=== PATIENT | female | born 1950 | race Caucasian/White ===

== ENCOUNTER 2022-07-29 08:59 | Emergency (ER) | payer OTHER ==
[~2022-07-29] VITALS: Ht 162.6 cm; Wt 54.5 kg
[~2022-07-29 08:59] MED LIST: ALPH300C OR; CHOL20009 OR; LISI-285 OR; MAGN400C3 OR; MISCTAB85 OR; MULTCHW OR; OMEGA 3 FATTY ACIDS; TRIA75TA55 OR
[2022-07-29] MEDS ORDERED: ACETAMINOPHEN 500 MG TAB PO ONE (09:45)
[2022-07-29 11:22] VITALS: BP 155/90
== END 2022-07-29 11:34 | disposition home or self-care (01) ==
LOC: ER 08:59 → EDBD 08:59 → ER 11:24
DX: S00.03XA Contusion of scalp, initial encounter (principal); M54.50 Low back pain, unspecified; I10 Essential (primary) hypertension; Z90.89 Acquired absence of other organs; Z79.899 Other long term (current) drug therapy; Z88.5 Allergy status to narcotic agent; W01.198A Fall on same level from slipping, tripping and stumbling with subsequent striking against other object, initial encounter; Y93.89 Activity, other specified; Y92.89 Other specified places as the place of occurrence of the external cause; Y99.8 Other external cause status
CPT/HCPCS: 70450; 72125

== ENCOUNTER 2022-08-08 07:31 | Emergency (ER) | payer OTHER ==
[~2022-08-08] VITALS: Ht 162.6 cm; Wt 54.5 kg
[2022-08-08] MEDS ORDERED: SODIUM CHLORIDE 0.9% 1,000 ML IV ONE (08:30)
[2022-08-08] MEDS ORDERED: KETOROLAC TROMETH 30 MG/ML 1ML VIAL IV ONE (08:30)
[2022-08-08] MEDS ORDERED: ONDANSETRON HCL 4 MG/2 ML VIAL IV ONE (08:30)
[2022-08-08 08:57] LABS: Basophils # (auto) 0.1 10 ^3/uL (0-0.2); Basophils % (auto) 0.6 % (0.0-2.0); Eosinophils # (auto) 0 10 ^3/uL (0-0.8); Eosinophils % (auto) 0.5 % (0.0-7.0); Hematocrit 43.3 % (36.0-46.0); Hemoglobin 15.1 g/dL (12.2-16.2); Lymphocytes # (auto) 1.3 10 ^3/uL (0.4-5.4); Lymphocytes % (auto) 13.6 % (10.0-50.0); Mean Corpuscular Hemoglobin 30.8 pg (28.0-32.0); Mean Corpuscular Hgb Conc. 34.9 g/dL (32.0-36.0); Mean Corpuscular Volume 88.2 fL (80.0-100.0); Monocytes # (auto) 0.6 10 ^3/uL (0-1.3); Monocytes % (auto) 6.5 % (0.0-12.0); Neutrophils # (auto) 7.6 10 ^3/uL (1.6-8.6); Neutrophils % (auto) 78.8 % (37.0-80.0); Red Blood Cells 4.91 10^6/uL (4.0-5.20); Red Cell Distribution Width 13.6 % (11.8-14.3); White Blood Cell 9.6 10^3/uL (4.4-10.8)
[2022-08-08 09:08] LABS: Albumin 3.9 g/dL (3.4-5.0); Calcium 9.7 mg/dL (8.5-10.1); Magnesium 2.2 mg/dL (1.6-2.6); Potassium 3.5 mmol/L (3.5-5.1)
[2022-08-08 09:10] LABS: BUN/Creatinine Ratio 36.7; Bilirubin, Total 1.2 mg/dL (0.2-1.0); Total Protein 6.7 g/dL (6.4-8.2)
[2022-08-08] MEDS ORDERED: CYCL-838 PO (11:34)
[2022-08-08] MEDS ORDERED: TRAM50TA2 PO (11:34)
[2022-08-08] MEDS ORDERED: DICL50TA2 PO (11:34)
[2022-08-08] MEDS ORDERED: BUPIVACAINE 0.75% INJ 10ML MPV SDV IJ ONE (14:15)
[2022-08-08] MEDS ORDERED: DexAMETHasone SOD PHOS 4 MG/1ML SDV INJ IV ONE (14:15)
[2022-08-08 14:50] VITALS: BP 150/77
[2022-08-09 08:55] LABS: Hepatitis B Surface Antibody Positive (Negative)
== END 2022-08-08 17:13 | disposition home or self-care (01) ==
LOC: EDBD 07:31 → ER 07:31
DX: M54.16 Radiculopathy, lumbar region (principal); M79.10 Myalgia, unspecified site; I10 Essential (primary) hypertension; Z90.89 Acquired absence of other organs; Z79.899 Other long term (current) drug therapy; Z88.5 Allergy status to narcotic agent
CPT/HCPCS: 36415; 72131; 80053; 83735; 85025; 86703; 86706; 86803; 87340; 96361; 96374; 96375; 99285; J1100; J1885; J2405; J3490

== ENCOUNTER 2022-09-21 16:47 | Inpatient (IN) | payer OTHER ==
[~2022-09-21] VITALS: Ht 162.6 cm; Wt 55.0 kg
[~2022-09-21 16:47] MED LIST changes: +CYCL-838 PO; +DICL50TA2 PO; +TRAM50TA2 PO
[2022-09-21 17:54] LABS: Basophils # (auto) 0.1 10 ^3/uL (0-0.2); Basophils % (auto) 0.7 % (0.0-2.0); Eosinophils # (auto) 0.1 10 ^3/uL (0-0.8); Eosinophils % (auto) 1.3 % (0.0-7.0); Hematocrit 38.6 % (36.0-46.0); Hemoglobin 13.6 g/dL (12.2-16.2); Lymphocytes # (auto) 1.7 10 ^3/uL (0.4-5.4); Lymphocytes % (auto) 21.3 % (10.0-50.0); Mean Corpuscular Hemoglobin 31.5 pg (28.0-32.0); Mean Corpuscular Hgb Conc. 35.3 g/dL (32.0-36.0); Mean Corpuscular Volume 89.3 fL (80.0-100.0); Monocytes # (auto) 0.6 10 ^3/uL (0-1.3); Monocytes % (auto) 7.7 % (0.0-12.0); Neutrophils # (auto) 5.6 10 ^3/uL (1.6-8.6); Nucleated Red Blood Cells % 0.1 %; Red Blood Cells 4.33 10^6/uL (4.0-5.20); Red Cell Distribution Width 13.9 % (11.8-14.3); White Blood Cell 8.1 10^3/uL (4.4-10.8)
[2022-09-21 18:16] LABS: Calcium 10.2 mg/dL (8.5-10.1); Potassium 3.6 mmol/L (3.5-5.1)
[2022-09-21 18:19] LABS: BUN/Creatinine Ratio 25.5; Bilirubin, Total 0.8 mg/dL (0.2-1.0); Total Protein 7.2 g/dL (6.4-8.2)
[2022-09-21 18:54] LABS: INR 0.94 (0.9-1.15); Partial Thromboplastin Time 28.8 sec (24.6-33.4)
[2022-09-21] MEDS ORDERED: IOHEXOL 350 MG/ML 100ML IJ ONE (23:11)
[2022-09-22] MEDS ORDERED: ONDANSETRON HCL 4 MG/2 ML VIAL IV PRN (00:30)
[2022-09-22] MEDS ORDERED: hydrALAZINE HCL 20 MG/ML VL IV PRN (00:30)
[2022-09-22] MEDS ORDERED: IBUPROFEN 600 MG TAB PO PRN (00:30)
[2022-09-22] MEDS ORDERED: DOCUSATE SOD 100 MG CAP PO PRN (00:30)
[2022-09-22] MEDS ORDERED: MORPHINE SULFATE INJ 2 MG/ml SYRG IV PRN (02:00)
[2022-09-22] MEDS ORDERED: cefTRIAXone 1GM/50ML D5W 50 ML IV ONE (02:00)
[2022-09-22] MEDS ORDERED: NITROGLYCERIN 0.4 MG SL TAB SL PRN (02:00)
[2022-09-22] MEDS: SODIUM CHLOR 0.9% PF (SALINE LOCK) 10ML VIAL/SYR IV SCH ×3 (08:24→22:00)
[2022-09-22] MEDS ORDERED: FAMOTIDINE (10MG/ML) 2ML VL IV SCH (10:00)
[2022-09-22] MEDS ORDERED: ZINC SULFATE 220mg CAP or TAB PO SCH (10:00)
[2022-09-22] MEDS ORDERED: ENOXAPARIN SOD 40 MG/0.4 ML SYRINGE SC SCH (10:00)
[2022-09-22] MEDS ORDERED: MULTIPLE VITAMIN TAB PO SCH (10:00)
[2022-09-22] MEDS: ASCORBIC ACID 500 MG TAB PO SCH ×2 (11:59→22:00)
[2022-09-22] MEDS ORDERED: FUROSEMIDE 20 MG/2 ML VIAL IV ONE (13:45)
[2022-09-22] MEDS ORDERED: VANCOMYCIN PER PHARMACY 0 MG IV SCH (13:45)
[2022-09-22] MEDS ORDERED: VANCOMYCIN 1GM/250ML 250 ML IV ONE (13:45)
[2022-09-22] MEDS ORDERED: NEOMYCIN-BACITRACIN-POLYM 15GM TOP OINT TOP ONE (13:46)
[2022-09-22] MEDS: PIPERACILLIN-TAZOB 3.375GM 100 ML IV SCH (18:46)
[2022-09-22] MEDS ORDERED: cefTRIAXone 1GM/50ML D5W 50 ML IV SCH (22:00)
[2022-09-23] MEDS ORDERED: VANCOMYCIN 1GM/250ML 250 ML IV SCH (04:00)
[2022-09-23] MEDS: SODIUM CHLOR 0.9% PF (SALINE LOCK) 10ML VIAL/SYR IV SCH (06:21)
[2022-09-23] MEDS: PIPERACILLIN-TAZOB 3.375GM 100 ML IV SCH ×2 (06:33)
[2022-09-23 07:17] LABS: Basophils # (auto) 0.1 10 ^3/uL (0-0.2); Eosinophils # (auto) 0.1 10 ^3/uL (0-0.8); Eosinophils % (auto) 1.7 % (0.0-7.0); Hemoglobin 12.4 g/dL (12.2-16.2); Lymphocytes # (auto) 1.3 10 ^3/uL (0.4-5.4); Lymphocytes % (auto) 22.8 % (10.0-50.0); Mean Corpuscular Hemoglobin 31.1 pg (28.0-32.0); Mean Corpuscular Hgb Conc. 34.5 g/dL (32.0-36.0); Mean Corpuscular Volume 90.1 fL (80.0-100.0); Monocytes # (auto) 0.4 10 ^3/uL (0-1.3); Monocytes % (auto) 7.8 % (0.0-12.0); Neutrophils # (auto) 3.7 10 ^3/uL (1.6-8.6); Neutrophils % (auto) 66.7 % (37.0-80.0); Nucleated Red Blood Cells % 0.1 %; Red Blood Cells 3.99 10^6/uL (4.0-5.20); Red Cell Distribution Width 13.8 % (11.8-14.3); White Blood Cell 5.6 10^3/uL (4.4-10.8)
[2022-09-23 07:33] LABS: Calcium 9.1 mg/dL (8.5-10.1); Potassium 3.1 mmol/L (3.5-5.1)
[2022-09-23 08:00] VITALS: BP 156/93
[2022-09-23] MEDS ORDERED: POTASSIUM CHL 20 Meq TABLET PO ONE (13:30)
[2022-09-23] MEDS ORDERED: LEVO-28 PO (14:58)
== END 2022-09-23 08:08 | disposition left against medical advice (07) | DRG 603 ==
LOC: ER 16:47 → OVERFLOW 09-22 02:00
PROVIDERS: ADMIT Nurse Practitioner Family; ATTEND Nurse Practitioner Family
DX: L03.116 Cellulitis of left lower limb (principal); L97.913 Non-pressure chronic ulcer of unspecified part of right lower leg with necrosis of muscle; L97.923 Non-pressure chronic ulcer of unspecified part of left lower leg with necrosis of muscle; S81.802A Unspecified open wound, left lower leg, initial encounter; M79.18 Myalgia, other site; X58.XXXA Exposure to other specified factors, initial encounter; Z53.29 Procedure and treatment not carried out because of patient's decision for other reasons; I10 Essential (primary) hypertension; R79.89 Other specified abnormal findings of blood chemistry; Z88.1 Allergy status to other antibiotic agents; Z88.5 Allergy status to narcotic agent; Y93.89 Activity, other specified; Y92.89 Other specified places as the place of occurrence of the external cause; Y99.8 Other external cause status
CPT/HCPCS: 36415; 71045; 71275; 73590; 80048; 80053; 82962; 84484; 85025; 85379; 85610; 85652; 85730; 87426; 93925; 93970; 96365; 96372; 96375; G0378; J0696; J2543; J3490

== ENCOUNTER 2023-04-20 17:48 | Emergency (ER) | payer OTHER ==
[~2023-04-20] VITALS: Ht 162.6 cm; Wt 54.5 kg
[~2023-04-20 17:48] MED LIST changes: +LEVO500T91 PO
[2023-04-20 22:50] VITALS: BP 98/72
[2023-04-21] MEDS ORDERED: IBUPROFEN 800 MG TAB PO ONE (00:15)
[2023-04-21] MEDS ORDERED: IBUP-1456 PO (00:45)
[2023-04-21] MEDS ORDERED: TETANUS-DIPTH-ACEL PERTUSSIS 0.5ML SYR Tdap IM ONE (00:45)
== END 2023-04-21 02:19 | disposition home or self-care (01) ==
LOC: ER 17:48 → EDBD 17:48 → ER 04-21 02:19
DX: S62.601A Fracture of unspecified phalanx of left index finger, initial encounter for closed fracture (principal); S62.603A Fracture of unspecified phalanx of left middle finger, initial encounter for closed fracture; I10 Essential (primary) hypertension; Z98.51 Tubal ligation status; Z88.6 Allergy status to analgesic agent; W18.39XA Other fall on same level, initial encounter; Y93.89 Activity, other specified; Y92.89 Other specified places as the place of occurrence of the external cause; Y99.8 Other external cause status
CPT/HCPCS: 29125; 73130; 90471; 90715

== ENCOUNTER 2024-10-04 17:59 | Emergency (ER) | payer OTHER ==
[~2024-10-04] VITALS: Ht 162.6 cm; Wt 59.0 kg
[~2024-10-04 17:59] MED LIST changes: +IBUP-1456 PO
[2024-10-04 18:34] VITALS: PULSE 94; RESP 14; O2SAT 96
[2024-10-04] MEDS: hydrALAZINE HCL 10 MG TAB PO ONE (18:41)
--- NOTE | 2024-10-04 19:14 | ED.PDOC ---
History of Present Illness HPI Comments 73 y/o F, with a Hx of Thyroid disease, cancer, HTN, is BIBA for c/o generalized facial and left foot bruising and laceration wounds w/associated pain s/p mechanical fall and injury, today. Patient endorses on falling and landing on her face w/o LOC after getting her left foot caught on uneven pavement at home, this evening. Patient was found with a blood glucose of 123 and all remaining vitals stable and within normal limits per EMS report. Patient endorses on prior substance use/exposure in addition to any symptoms, such as dizziness or chest pain. Patient denies having any vision or speech changes, numbness, weakness, tingling, or other associated symptoms or modifiers at this time. Chief Complaint: Fall Injury Time Seen by MD: 18:35 Primary Care Provider: romeo Reviewed Notes: Nurses Notes, Clinical Documentation Specialist Notes, Medications, Allergies Allergies: Coded Allergies: Acetaminophen (Verified Allergy, Unknown, 09/21/22) Codeine (Verified Allergy, Unknown, 07/29/22) Hydrocodone (Verified Allergy, Unknown, 09/21/22) Hydromorphone (Verified Allergy, Unknown, 07/29/22) Oxycodone (Verified Allergy, Unknown, 07/29/22) Uncoded Allergies: OPIOIDS (Allergy, Unknown, 06/11/15) Home Meds Active Scripts Ibuprofen (Ibuprofen) 800 Mg Tab, 1 TAB PO TID PRN for 30 Days, #90 TAB 1 Refill Prov:CARL CRANE RETAIL AND PROMOTIONS COORDINATOR 04/21/23 Levofloxacin Hemihydrate (LEVOFLOXACIN) 500 Mg Tab, 1 TAB PO DAILY, #7 TAB Prov:ROSCOE HARRIS MD 09/23/22 Tramadol Hcl (Tramadol Hcl) 50 Mg Tab, 50 MG PO BID for 10 Days, #20 TAB Prov:ALYSA THAKKAR MD 08/08/22 Diclofenac Potassium (Diclofenac Potassium) 50 Mg Tab, 1 TAB PO TIDP for 10 Days, #30 TAB Prov:ALYSA THAKKAR MD 08/08/22 Cyclobenzaprine Hcl (CYCLOBENZAPRINE HCL) 7.5 Mg Tab, 7.5 MG PO BID for 10 Days, #20 TAB Prov:ALYSA THAKKAR MD 08/08/22 Reported Medications Magnesium Oxide (Mg Supplement (MAGNESIUM) 400 Mg Cap, 400 MG OR DAILY 07/11/12 Lipoic Acid (Thioctic Acid) (Alpha Lipoic Acid) 300 Mg Cap, 300 MG OR DAILY 07/11/12 Multiple Vitamins W/ Minerals (Centrum Silver) Silver Chw, 1 OR DAILY 07/11/12 Misc Natural Products (Osteo Bi-Flex Triple Stre) Triple Tab, 1 OR DAILY 07/11/12 Cholecalciferol (VITAMIN D) 2,000 Unit Tab, 2000 UNIT OR DAILY 07/11/12 [imega 3 fish oil ] No Conflict Check, 1000 MG 07/11/12 Triamterene & Hydrochlorothiaz (Maxzide) 1 Tab Tab, 1 TAB OR DAILY 07/11/12 Lisinopril & Hydrochlorothiazi (Lisinopril/Hydrochlorothi) 1 Tab Tab, 1 TAB OR DAILY 07/11/12 Information Source: Patient, Emergency Med Personnel Mode of Arrival: EMS Severity: Moderate Timing: Hours Duration: Since onset Prehospital treatment: 12 Lead EKG, Accucheck, Cryptologic Linguist Past Medical History PAST MEDICAL HISTORY: Cancer, HTN, Thyroid Surgical History: , Tonsillectomy, Tubal Ligation APPLIANCE INSTALLER History: Denies all APPLIANCE INSTALLER Hx Family History Family History: Reviewed,noncontributory to illness Social History Smoker: Non-Smoker Alcohol: Denies ETOH Use Drugs: Denies Drug Use Lives In: Home Constitutional: denies: chills, diaphoresis, fatigue, fever, malaise, sweats, weakness, others EENTM: reports: others (facial pain ); denies: blurred vision, double vision, ear bleeding, ear discharge, ear drainage, ear pain, ear ringing, eye pain, eye redness, hearing loss, mouth pain, mouth swelling, nasal discharge, nose bleeding, nose congestion, nose pain, photophobia, tearing, throat pain, throat swelling, voice changes Respiratory: denies: cough, hemoptysis, orthopnea, SOB at rest, shortness of breath, SOB with excertion, stridor, wheezing, others Cardiovascular: denies: chest pain, dizzy spells, diaphoresis, Dyspnea on exertion, edema, irregular heart beat, left arm pain, lightheadedness, palpitations, PND, syncope, others Gastrointestinal: denies: abdomen distended, abdominal pain, blood streaked bowels, constipated, diarrhea, dysphagia, difficulty swallowing, hematemesis, melena, nausea, poor appetite, poor fluid intake, rectal bleeding, rectal pain, vomiting, others Genitourinary: denies: abnormal vagina bleeding, burning, dyspareunia, dysuria, flank pain, frequency, hematuria, incontinence, pain, , vagina discharge, urgency, others Neurological: denies: dizziness, fainting, headache, left sided numbness, left sided weakness, numbness, paresthesia, pre-existing deficit, right sided numbness, right sided weakness, seizure, speech problems, tingling, tremors, weakness, others Musculoskeletal: reports: others (left foot pain ); denies: back pain, gout, joint pain, joint swelling, muscle pain, muscle stiffness, neck pain Integumetry: reports: bruises (generalized facial and left foot), laceration (generalized facial and left foot); denies: change in color, change in hair/nails, dryness, lesions, lumps, rash, wounds, others Allergic/Immunocompromised: denies: Difficulty Healing, Frequent Infections, Hives, Itching, others Hematologic/Lymphatic: denies: anemia, blood clots, easy bleeding, easy bruising, swollen glands, others Endocrine: denies: excessive hunger, excessive sweating, excessive thirst, excessive urination, flushing, intolerance to cold, intolerance to heat, unexplained weight gain, unexplained weight loss, others Psychiatric: denies: anxiety, bipolar disorder, depression, hopeless, panic disorder, schizophrenia, sleepless, suicidal, others All Other Systems: Reviewed and Negative Physical Exam General Appearance: Moderate Distress HEENT: Normal ENT Inspection, Pharynx Normal, TMs Normal Neck: Full Range of Motion, Non-Tender, Normal, Normal Inspection Respiratory: Chest Non-Tender, Lungs Clear, No Accessory Muscle Use, No Respiratory Distress, Normal Breath Sounds Cardiovascular: No Edema, No JVD, No Murmur, No Gallop, Normal Peripheral Pulses, Regular Rate/Rhythm Breast Exam: Deferred Gastrointestinal: No Organomegaly, Non Tender, No Pulsatile Mass, Normal Bowel Sounds, Soft Genitalia: Deferred Pelvic: Deferred Rectal: Deferred Extremities: No calf tenderness, Normal capillary refill, Normal inspection, Normal range of motion, Non-tender, No pedal edema Musculoskeletal : Apperance: Normal Neurologic: Alert, planer operator / grader II-XII nml as Tested, No Motor Deficits, Normal Affect, Normal Mood, No Sensory Deficits Cerebellar Function: Normal Reflexes: Normal Skin: Bruises (Left toes right angle of mouth) Peripheral Pulses: 3+ Radial (R), 3+ Radial (L) Lymphatic: No Adenopathy Was a procedure done? Was a procedure done?: No Differential Dx Considerations may include: closed head injury, fracture, bruising, contusion, laceration X-Ray, Labs, Meds, VS Vital Signs Date Time Temp Pulse Resp B/P (MAP) Pulse Ox O2 Delivery O2 Flow Rate FiO2 10/04/24 18:41 197/103 10/04/24 18:34 94 14 96 Room Air* 0 21 10/04/24 18:34 94 14 194/103 (133) 96 10/04/24 18:06 98.2 79 18 202/115 (144) 100 Current Medications Medications (Trade) Dose Ordered Sig/Anurag Route Start Time Stop Time Status Last Admin Hydralazine HCl (Apresoline Tablet) 10 mg ONCE ONCE PO 10/04/24 18:15 10/04/24 18:16 DC 10/04/24 18:41 [place] [id number] Ph: [phone] DIAGNOSTIC IMAGING Diagnostic Imaging Report : [id number] Signed PATIENT: YOU CERVANTES ACCT: [id number] UNIT: [id number] : 1950 LOC: ER ROOM / BED: / AGE / SEX: 73 / F ADM STATUS: REG ER SERVICE 34 ORDERING PHYSICIAN: FELICITY LAMBERT MD PROCEDURE(s): FAC2C - MAXILLOFACIAL WITHOUT REASON: fall ORDER NUMBER(s): [id number], ACCESSION NUMBER(s): [id number] HISTORY: fall TECHNIQUE: Nonenhanced axial images through the facial bones with coronal and sagittal MPR. Radiation Dose Information: CT Dose: CTDI volume is 66.43 mGy. Dose-length product is 1236.5 mGy*cm FINDINGS: Suboccipital craniotomy on the right. Mandible: No fracture Maxilla: No fracture seen Pterygoid plates: No enedelia Zygomatic processes: No fracture. Zygomatic arches: No fracture Orbits: Intact Sinuses: No air-fluid levels no bony fracture Facial swelling: Mild facial swelling over the apex of the mandible on the right IMPRESSION: 1. No acute facial fractures. Radiation optimization: All CT scans at this facility use at least one of these dose optimization techniques: automated exposure control mA and/or kV adjustment per patient size (includes targeted exams where dose is matched to clinical indication) or iterative reconstruction. ATED BY: ANNE HUNG Jr., DO DICTATED DATE/TIME: 10/04/241932 SIGNED BY: ANNE HUNG Jr., SIGNED DATE/TIME: 10/04/241932 CC: [place] [address] Ph: [phone] DIAGNOSTIC IMAGING Diagnostic Imaging Report : [id number] Signed PATIENT: YOU CERVANTES ACCT: [id number] UNIT: [id number] : 1950 LOC: ER ROOM / BED: / AGE / SEX: 73 / F ADM STATUS: REG ER SERVICE 34 ORDERING PHYSICIAN: FELICITY LAMBERT MD PROCEDURE(s): HWOCT - HEAD WITHOUT CONTRAST REASON: fall ORDER NUMBER(s): [id number], ACCESSION NUMBER(s): [id number] EXAM: CT HEAD WITHOUT CONTRAST INDICATION: fall TECHNIQUE: CT of the head without intravenous contrast. Radiation Dose Information: CT Dose: CTDI volume is 51.52 mGy. Dose-length product is 826.02 mGy*cm The dose indicators for CT are the volume Computed Tomography (CT) Dose Index (CTDIvol) and the Dose Length Product (DLP), and are measured in units of mGy and mGy-cm, respectively. These indicators are not patient dose, but values generated from the CT scanner acquisition factors. The report includes radiation exposure data for exposures received during this examination. COMPARISON: CT ANGIO CHEST CONTRAST on DOS: 09/21/22 FINDINGS: There is no evidence of acute intracranial hemorrhage, extra-axial collection, mass effect, midline shift, herniation or hydrocephalus. The ventricles, sulci and cisterns are age appropriate. The paige-white differentiation is intact. Patchy periventricular and subcortical white matter hypoattenuation is nonspecific but may be related to small vessel ischemic disease. The visualized paranasal sinuses and mastoid air cells are clear. The surrounding soft tissues and osseous structures are unremarkable. Right sub occipital craniotomy. IMPRESSION: 1. No acute intracranial hemorrhage. 2. No CT findings of territorial ischemia. 3. Postop changes from a suboccipital craniotomy in the right ATED BY: ANNE HUNG Jr., DO DICTATED DATE/TIME: 10/04/241937 SIGNED BY: ANNE HUNG Jr., DO SIGNED DATE/TIME: 10/04/241937 CC: [place] [address] Ph: [phone] DIAGNOSTIC IMAGING Diagnostic Imaging Report : [id number] Signed PATIENT: OYU CERVANTES ACCT: [id number] UNIT: [id number] : 1950 LOC: ER ROOM / BED: / AGE / SEX: 73 / F ADM STATUS: REG ER SERVICE 34 ORDERING PHYSICIAN: FELICITY LAMBERT MD PROCEDURE(s): LFOT2 - L FOOT 2 VIEW XRAY REASON: fall ORDER NUMBER(s): [id number], ACCESSION NUMBER(s): [id number] CLINICAL INDICATION: fall TECHNIQUE: 2 radiographic views of the left foot were obtained. Comparison: None FINDINGS/IMPRESSION: There is no evidence of acute fracture or dislocation. The visualized joint space is well maintained. Hammertoe deformities involving all toes limiting evaluation. There is no radiopaque foreign body. ATED BY: ANNE HUNG Jr., DO DICTATED DATE/TIME: 10/04/241934 SIGNED BY: ANNE HUNG Jr., DO SIGNED DATE/TIME: 10/04/241934 CC: Patient alert. Status post fall. Does not take any blood thinner. Answering all questions. Blood pressure elevated. Was given hydralazine. Patient mentating well. Moving all extremities. Mild bruising. No obvious injuries. Patient insists on going home. On re-evaluation she is moving all extremities. Family at bedside. No distress. CT scan of the head reviewed does not show any acute changes. Maxillofacial reviewed does not show any acute process. X-rays of the foot does not show any acute process. Reviewed her history. Explained to the patient. Was told to follow up with her primary care physician. Was told to come back if there is any problem. Time of 1ST Reevaluation: 19:05 Reevaluation 1ST: Unchanged Patient Education/Counseling: Diagnosis, Treatment Family Education/Counseling: No Family Present Departure 1 Departure Time of Disposition: 19:47 Impression: Primary Impression: Hypertensive urgency Additional Impression: Head injury Qualified Codes: S09.90XA - Unspecified injury of head, initial encounter Disposition: HOME / SELF CARE / HOMELESS Condition: Good Discharged With: Self Critical Care Note Critical Care Time?: Yes (45 min-critical care time only) Stability Stability form required: No Heart Score Heart Score: Heart Score Response (Comments) Value History N/A 0 EKG N/A 0 Age N/A 0 Risk Factors N/A 0 Troponin N/A 0 Total 0 I personally scribed for FELICITY LAMBERT MD ([email or web address]) on 10/04/24 at 19:14. Electronically submitted by Ivan Muse ([email or web address]). I personally scribed for FELICITY LAMBERT MD ([email or web address]) on 10/04/24 at 19:57. Electronically submitted by Ivan Muse ([email or web address]). FELICITY LAMBERT MD Oct 04, 2024 19:14
--- NOTE | 2024-10-04 19:35 | DVH ---
HISTORY: fall TECHNIQUE: Nonenhanced axial images through the facial bones with coronal and sagittal MPR. Radiation Dose Information: CT Dose: CTDI volume is 66.43 mGy. Dose-length product is 1236.5 mGy*cm FINDINGS: Suboccipital craniotomy on the right. Mandible: No fracture Maxilla: No fracture seen Pterygoid plates: No enedelia Zygomatic processes: No fracture. Zygomatic arches: No fracture Orbits: Intact Sinuses: No air-fluid levels no bony fracture Facial swelling: Mild facial swelling over the apex of the mandible on the right IMPRESSION: 1. No acute facial fractures. Radiation optimization: All CT scans at this facility use at least one of these dose optimization ghazala hniques: automated exposure control mA and/or kV adjustment per patient size (includes targeted exam s where dose is matched to clinical indication) or iterative reconstruction.
--- NOTE | 2024-10-04 19:37 | DVH ---
CLINICAL INDICATION: fall TECHNIQUE: 2 radiographic views of the left foot were obtained. Comparison: None FINDINGS/IMPRESSION: There is no evidence of acute fracture or dislocation. The visualized joint space is well maintained. Hammertoe deformities involving all toes limiting evaluation. There is no radiopaque foreign body.
--- NOTE | 2024-10-04 19:40 | DVH ---
EXAM: CT HEAD WITHOUT CONTRAST INDICATION: fall TECHNIQUE: CT of the head without intravenous contrast. Radiation Dose Information: CT Dose: CTDI volume is 51.52 mGy. Dose-length product is 826.02 mGy*cm The dose indicators for CT are the volume Computed Tomography (CT) Dose Index (CTDIvol) and the Dose Length Product (DLP), and are measured in units of mGy and mGy-cm, respectively. These indicators are not patient dose, but values generated from the CT scanner acquisition factors. The report includes radiation exposure data for exposures received during this examination. COMPARISON: CT ANGIO CHEST CONTRAST on DOS: 09/21/22 FINDINGS: There is no evidence of acute intracranial hemorrhage, extra-axial collection, mass effect, midline s hift, herniation or hydrocephalus. The ventricles, sulci and cisterns are age appropriate. The paige-white differentiation is intact. Patchy periventricular and subcortical white matter hypoattenuation is nonspecific but may be related to small vessel ischemic disease. The visualized paranasal sinuses and mastoid air cells are clear. The surrounding soft tissues and osseous structures are unremarkable. Right sub occipital craniotomy. IMPRESSION: 1. No acute intracranial hemorrhage. 2. No CT findings of territorial ischemia. 3. Postop changes from a suboccipital craniotomy in the right
[2024-10-04 19:45] VITALS: PULSE 81; RESP 15; TEMP 97.9; O2SAT 98
[2024-10-04 22:04] VITALS: BP 170/91; PULSE 77; RESP 14; O2SAT 97
== END 2024-10-04 22:04 | disposition home or self-care (01) ==
LOC: ER 17:59 → EDBD 17:59 → ER 21:46
DX: S09.8XXA Other specified injuries of head, initial encounter (principal); I16.0 Hypertensive urgency; I10 Essential (primary) hypertension; Z88.5 Allergy status to narcotic agent; Z90.89 Acquired absence of other organs; Z98.51 Tubal ligation status; Z98.890 Other specified postprocedural states; W18.39XA Other fall on same level, initial encounter; Y93.89 Activity, other specified; Y92.89 Other specified places as the place of occurrence of the external cause; Y99.8 Other external cause status
CPT/HCPCS: 70450; 70486; 73620

== ENCOUNTER 2025-04-19 11:29 | Emergency (ER) | payer OTHER ==
[~2025-04-19] VITALS: Ht 165.1 cm; Wt 57.0 kg
[2025-04-19 12:46] VITALS: BP 163/88; PULSE 67; RESP 18; TEMP 99.6; O2SAT 96
--- NOTE | 2025-04-19 12:49 | DVH ---
PROCEDURE: Left ankle radiographs. INDICATION: r/o fracture TECHNIQUE: 3 views of the left ankle were obtained. COMPARISON: None FINDINGS: There is acute nondisplaced fracture in the inner aspect of the lateral malleolus. No disl ocation. Lateral soft tissue swelling. IMPRESSION: 1. Acute nondisplaced lateral malleolus fracture.
--- NOTE | 2025-04-19 13:05 | ED.PDOC ---
Musculoskeletal HPI Comments A 74-year-old female with a past medical history of Thyroid disease, cancer, hypertension presents to the emergency department with a chief complaint of LT ankle pain onset today (04/19/25). Patient states she was stepping on a stool when she twisted her ankle. She is currently experiencing pain and swelling to LT ankle. She is not able to walk or apply pressure to LT ankle. No other symptoms or modifying factors present at this time. Not able to bear weight Denies previous surgeries to the ankle Denies redness or swelling around the ankle Denies fever chills night sweats nausea vomiting Denies head injury, LOC Chief Complaint: Lower Extremity Time Seen by MD: 12:50 Primary Care Provider: Silke Reviewed Notes: Nurses Notes, Medications, Allergies Allergies: Coded Allergies: Acetaminophen (Verified Allergy, Unknown, 09/21/22) Codeine (Verified Allergy, Unknown, 07/29/22) Hydrocodone (Verified Allergy, Unknown, 09/21/22) Hydromorphone (Verified Allergy, Unknown, 07/29/22) Oxycodone (Verified Allergy, Unknown, 07/29/22) Uncoded Allergies: OPIOIDS (Allergy, Unknown, 06/11/15) Home Meds Active Scripts Ibuprofen (Ibuprofen) 800 Mg Tab, 1 TAB PO TID PRN for 30 Days, #90 TAB 1 Refill Prov:CARL CRANE 04/21/23 Levofloxacin Hemihydrate (LEVOFLOXACIN) 500 Mg Tab, 1 TAB PO DAILY, #7 TAB Prov:ROSCOE HARRIS MD 09/23/22 Tramadol Hcl (Tramadol Hcl) 50 Mg Tab, 50 MG PO BID for 10 Days, #20 TAB Prov:ALYSA THAKKAR MD 08/08/22 Diclofenac Potassium (Diclofenac Potassium) 50 Mg Tab, 1 TAB PO TIDP for 10 Days, #30 TAB Prov:ALYSA THAKKAR MD 08/08/22 Cyclobenzaprine Hcl (CYCLOBENZAPRINE HCL) 7.5 Mg Tab, 7.5 MG PO BID for 10 Days, #20 TAB Prov:ALYSA THAKKAR MD 08/08/22 Reported Medications Magnesium Oxide (Mg Supplement (MAGNESIUM) 400 Mg Cap, 400 MG OR DAILY 07/11/12 Lipoic Acid (Thioctic Acid) (Alpha Lipoic Acid) 300 Mg Cap, 300 MG OR DAILY 07/11/12 Multiple Vitamins W/ Minerals (Centrum Silver) Silver Chw, 1 OR DAILY 07/11/12 Misc Natural Products (Osteo Bi-Flex Triple Stre) Triple Tab, 1 OR DAILY 07/11/12 Cholecalciferol (VITAMIN D) 2,000 Unit Tab, 2000 UNIT OR DAILY 07/11/12 [imega 3 fish oil ] No Conflict Check, 1000 MG 07/11/12 Triamterene & Hydrochlorothiaz (Maxzide) 1 Tab Tab, 1 TAB OR DAILY 07/11/12 Lisinopril & Hydrochlorothiazi (Lisinopril/Hydrochlorothi) 1 Tab Tab, 1 TAB OR DAILY 07/11/12 Information Source: Patient, Relative Mode of Arrival: Wheelchair Location: Left Extremity Location: Ankle Timing: Hours Prehospital treatment: None Severity: Moderate Able to Move Extremity: Yes Bear Weight: Limited Pain: Moderate Hand Dominance: Right Mechanism: Twisting Circumstances: Spontaneous Onset of Symptoms: After Trauma Symptoms: Swelling, Pain DVT Risk Factors: NONE Associated signs and symptoms: Ankle pain Past Medical History PAST MEDICAL HISTORY: Cancer, HTN, Thyroid Surgical History: , Tonsillectomy, Tubal Ligation IC DESIGN MANAGER History: Denies all IC DESIGN MANAGER Hx Family History Family History: Reviewed,noncontributory to illness Social History Smoker: Non-Smoker Alcohol: Denies ETOH Use Drugs: Denies Drug Use Lives In: Home All Other Systems: Reviewed and Negative (as per HPI) Physical Exam General Appearance: No Apparent Distress, Normal HEENT: Normal ENT Inspection, Pharynx Normal, TMs Normal Neck: Full Range of Motion, Non-Tender, Normal, Normal Inspection Respiratory: Chest Non-Tender, Lungs Clear, No Accessory Muscle Use, No Respiratory Distress, Normal Breath Sounds Cardiovascular: No Edema, No JVD, No Murmur, No Gallop, Normal Peripheral Pul ses, Regular Rate/Rhythm Breast Exam: Deferred Gastrointestinal: No Organomegaly, Non Tender, No Pulsatile Mass, Normal Bowel Sounds, Soft Genitalia: Deferred Pelvic: Deferred Rectal: Deferred Extremities: No calf tenderness, No pedal edema Musculoskeletal : Location: Left Extremity Location: Ankle (noticable swelling to LT lateral malleolus, no pain to medial malleolus or achilles tendon. Pain with dorsi flex/ plantar flex. Nerovascular intact) Apperance: Normal Neurologic: Alert, president celebrity acquistion II-XII nml as Tested, No Motor Deficits, Normal Affect, Normal Mood, No Sensory Deficits Cerebellar Function: Normal Reflexes: Normal Skin: Dry, Normal Color, Warm Lymphatic: No Adenopathy Was a procedure done? Was a procedure done?: No Differential Diagnosis EXT Differential Diagnosis: Fracture, Sprain, Dislocation X-Ray, Labs, Meds, VS Vital Signs Date Time Temp Pulse Resp B/P (MAP) Pulse Ox O2 Delivery O2 Flow Rate FiO2 04/19/25 12:46 99.6 67 16 163/88 (113) 96 99.6 04/19/25 12:46 67 18 96 Room Air 04/19/25 11:44 99.6 67 16 163/88 (113) 96 99.6 DIAGNOSTIC IMAGING Diagnostic Imaging Report : [id number] Signed PATIENT: YOU CERVANTES ACCT: [id number] UNIT: [id number] : 1950 LOC: ER ROOM / BED: / AGE / SEX: 74 / F ADM STATUS: REG ER SERVICE 1148 ORDERING PHYSICIAN: NIKHIL JUAREZ NP PROCEDURE(s): LANKL - L ANKLE 3 VIEW REASON: r/o fracture ORDER NUMBER(s): [id number], ACCESSION NUMBER(s): [id number] PROCEDURE: Left ankle radiographs. INDICATION: r/o fracture TECHNIQUE: 3 views of the left ankle were obtained. COMPARISON: None FINDINGS: There is acute nondisplaced fracture in the inner aspect of the lateral malleolus. No dislocation. Lateral soft tissue swelling. IMPRESSION: 1. Acute nondisplaced lateral malleolus fracture. ATED BY: WESLEY MEREDITH MD DICTATED DATE/TIME: 04/19/251246 SIGNED BY: WESLEY MEREDITH MD SIGNED DATE/TIME: 04/19/25 124 CC: X-Ray, Labs, Meds, VS Comment A 74-year-old female with a past medical history of Thyroid disease, cancer, hypertension presents to the emergency department with a chief complaint of LT ankle pain onset today (04/19/25). Patient arrives alert and oriented, ABC's intact, afebrile, vital signs stable, saturating well in room air Diagnostic imaging ordered by me and results interpreted by radiology : XY L ANKLE 3 VIEW Findings: Fracture Patient does not currently demonstrate complications of fracture such as compart ment syndrome, arterial or nerve injury. Interventions: The fracture has been satisfactorily immobilized, and the patient has been given appropriate analgesia. Disposition: Discharge with strict return precautions and instructions to follow up with primary MD within 24-48 hours for further evaluation including referral to an orthopedist or post closing specialist. Additional MDM Review of External, Non-ED records: External records reviewed. Discussion with independent historian (EMS, family) history obtained from the patient/parents (if applicable) at bedside Chronic conditions affecting care: thyroid disease, cancer, HTN Social determinants of health affecting care: None Consideration of admission (observation or admission): I considered escalation of care to admission for this patient, however given the reassuring workup, the patient is safe for outpatient management. Time of 1ST Reevaluation: 13:20 Reevaluation 1ST: Unchanged Patient Education/Counseling: Diagnosis, Treatment, Prognosis Family Education/Counseling: Diagnosis, Treatment, Prognosis Departure 1 Departure Time of Disposition: 13:20 Impression: Primary Impression: Lateral malleolar fracture Qualified Codes: S82.65XA - Nondisplaced fracture of lateral malleolus of left fibula, initial encounter for closed fracture Disposition: 01 HOME / SELF CARE / HOMELESS Condition: Stable Discharged With: Relative Critical Care Note Critical Care Time?: No Stability Stability form required: No Heart Score Heart Score: Heart Score Response (Comments) Value History N/A 0 EKG N/A 0 Age N/A 0 Risk Factors N/A 0 Troponin N/A 0 Total 0 I personally scribed for NIKHIL JUAREZ NP ([email or web address]) on 04/19/25 at 13:05. Electronically submitted by Joya Mcdonald ([email or web address]). I personally scribed for NIKHIL JUAREZ NP ([email or web address]) on 04/19/25 at 13:14. Electronically submitted by Joya Mcdonald ([email or web address]). NIKHIL JUAREZ NP Apr 19, 2025 13:05
== END 2025-04-19 13:38 | disposition home or self-care (01) ==
LOC: ER 11:29
DX: S82.65XA Nondisplaced fracture of lateral malleolus of left fibula, initial encounter for closed fracture (principal); Z88.5 Allergy status to narcotic agent; Z90.89 Acquired absence of other organs; Z98.51 Tubal ligation status; I10 Essential (primary) hypertension; X50.1XXA Overexertion from prolonged static or awkward postures, initial encounter; Y93.89 Activity, other specified; Y92.89 Other specified places as the place of occurrence of the external cause; Y99.8 Other external cause status
CPT/HCPCS: 73610

== ENCOUNTER 2025-07-21 10:27 | Emergency (ER) | payer OTHER ==
[~2025-07-21] VITALS: Ht 162.6 cm; Wt 57.4 kg
[2025-07-21 10:59] VITALS: BP 171/101; PULSE 87; RESP 18; TEMP 98.4; O2SAT 97
[2025-07-21] MEDS ORDERED: CEPH500C PO (11:00)
--- NOTE | 2025-07-21 11:12 | ED.PDOC ---
History of Present Illness(SKN HPI Comments THIS IS A 74 YEAR-OLD FEMALE WHO PRESENTS TO THE ED WITH A CHIEF COMPLAINT OF INSECT BITE TO R LEG OF LAST NIGHT. PATIENT STATES SHE WAS BITTEN BY UNKNOWN INSECT WHILE SLEEPING, PATIENT NOTICED THE BITES THIS MORNING WHEN SHE WOKE UP. PATIENT HAS NO FURTHER COMPLAINTS AT THIS TIME AND OTHERWISE DENIES COUGH, N/V, FEVER, CHILLS, OR LEG PAIN. PATIENT IS ALERT, ORIENTED X 4, AND HAS STEADY GAIT. Chief Complaint: Insect Bite Time Seen by MD: 10:48 Primary Care Provider: Silke History of Present Illness: Nurses Notes, Medications, Allergies Allergies: Coded Allergies: Acetaminophen (Verified Allergy, Unknown, 09/21/22) Codeine (Verified Allergy, Unknown, 07/29/22) Hydrocodone (Verified Allergy, Unknown, 09/21/22) Hydromorphone (Verified Allergy, Unknown, 07/29/22) Oxycodone (Verified Allergy, Unknown, 07/29/22) Uncoded Allergies: OPIOIDS (Allergy, Unknown, 06/11/15) Home Meds Active Scripts Cephalexin Monohydrate (Cephalexin) 500 Mg Cap, 1 CAP PO TID, #30 CAP Prov:KIMBERLY GARRETT 07/21/25 Ibuprofen (Ibuprofen) 800 Mg Tab, 1 TAB PO TID PRN for 30 Days, #90 TAB 1 Refill Prov:CARL CRANE 04/21/23 Levofloxacin Hemihydrate (LEVOFLOXACIN) 500 Mg Tab, 1 TAB PO DAILY, #7 TAB Prov:ROSCOE HARRIS MD 09/23/22 Tramadol Hcl (Tramadol Hcl) 50 Mg Tab, 50 MG PO BID for 10 Days, #20 TAB Prov:ALYSA THAKKAR MD 08/08/22 Diclofenac Potassium (Diclofenac Potassium) 50 Mg Tab, 1 TAB PO TIDP for 10 Days, #30 TAB Prov:ALYSA THAKKAR MD 08/08/22 Cyclobenzaprine Hcl (CYCLOBENZAPRINE HCL) 7.5 Mg Tab, 7.5 MG PO BID for 10 Days, #20 TAB Prov:ALYSA THAKKAR MD 08/08/22 Reported Medications Magnesium Oxide (Mg Supplement (MAGNESIUM) 400 Mg Cap, 400 MG OR DAILY 07/11/12 Lipoic Acid (Thioctic Acid) (Alpha Lipoic Acid) 300 Mg Cap, 300 MG OR DAILY 07/11/12 Multiple Vitamins W/ Minerals (Centrum Silver) Silver Chw, 1 OR DAILY 07/11/12 Misc Natural Products (Osteo Bi-Flex Triple Stre) Triple Tab, 1 OR DAILY 07/11/12 Cholecalciferol (VITAMIN D) 2,000 Unit Tab, 2000 UNIT OR DAILY 07/11/12 [imega 3 fish oil ] No Conflict Check, 1000 MG 07/11/12 Triamterene & Hydrochlorothiaz (Maxzide) 1 Tab Tab, 1 TAB OR DAILY 07/11/12 Lisinopril & Hydrochlorothiazi (Lisinopril/Hydrochlorothi) 1 Tab Tab, 1 TAB OR DAILY 07/11/12 Information Source: Patient Mode of Arrival: Ambulatory Severity: Mild Timing: Hours Duration: Since onset Prehospital treatment: None Location: Leg (BILATERAL ) Mechanism: Insect Occurence: Indoors Tetanus: UTD Associated Signs and Symptoms: Redness, Other (INSECT BITE TO R LEG ) Past Medical History PAST MEDICAL HISTORY: Cancer, HTN, Thyroid Surgical History: , Tonsillectomy, Tubal Ligation 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 STOCK TURNER Hx Family History Family History: Reviewed,noncontributory to illness Social History Smoker: Non-Smoker Alcohol: Denies ETOH Use Drugs: Denies Drug Use Lives In: Home Constitutional: denies: chills, diaphoresis, fatigue, fever, malaise, sweats, weakness, others EENTM: denies: blurred vision, double vision, ear bleeding, ear discharge, ear drainage, ear pain, ear ringing, eye pain, eye redness, hearing loss, mouth pain, mouth swelling, nasal discharge, nose bleeding, nose congestion, nose pain, photophobia, tearing, throat pain, throat swelling, voice changes, others Respiratory: denies: cough, hemoptysis, orthopnea, SOB at rest, shortness of breath, SOB with excertion, stridor, wheezing, others Cardiovascular: denies: chest pain, dizzy spells, diaphoresis, Dyspnea on exertion, edema, irregular heart beat, left arm pain, lightheadedness, palpita tions, PND, syncope, others Gastrointestinal: denies: abdomen distended, abdominal pain, blood streaked kim wels, constipated, diarrhea, dysphagia, difficulty swallowing, hematemesis, melena, nausea, poor appetite, poor fluid intake, rectal bleeding, rectal pain, vomiting, others Genitourinary: denies: abnormal vagina bleeding, burning, dyspareunia, dysuria, flank pain, frequency, hematuria, incontinence, pain, , vagina discharge, urgency, others Neurological: denies: dizziness, fainting, headache, left sided numbness, left sided weakness, numbness, paresthesia, pre-existing deficit, right sided numbness, right sided weakness, seizure, speech problems, tingling, tremors, weakness, others Musculoskeletal: denies: back pain, gout, joint pain, joint swelling, muscle pain, muscle stiffness, neck pain, others Integumetry: reports: lesions, others (INSECT BITE TO R LEG ); denies: bruises, change in color, change in hair/nails, dryness, laceration, lumps, rash, wounds Allergic/Immunocompromised: denies: Difficulty Healing, Frequent Infections, Hives, Itching, others Hematologic/Lymphatic: denies: anemia, blood clots, easy bleeding, easy bruising, swollen glands, others Endocrine: denies: excessive hunger, excessive sweating, excessive thirst, excessive urination, flushing, intolerance to cold, intolerance to heat, unexplained weight gain, unexplained weight loss, others Psychiatric: denies: anxiety, bipolar disorder, depression, hopeless, panic disorder, schizophrenia, sleepless, suicidal, others All Other Systems: Reviewed and Negative Physical Exam General Appearance: No Apparent Distress, Normal HEENT: Normal ENT Inspection, PERRL/EOMI, Pharynx Normal, TMs Normal Neck: Full Range of Motion, Non-Tender, Normal, Normal Inspection Respiratory: Chest Non-Tender, Lungs Clear, No Accessory Muscle Use, No Respiratory Distress, Normal Breath Sounds Cardiovascular: No Edema, No JVD, No Murmur, No Gallop, Normal Peripheral Pulses, Regular Rate/Rhythm Breast Exam: Deferred Gastrointestinal: No Organomegaly, Non Tender, No Pulsatile Mass, Normal Bowel Sounds, Soft Genitalia: Deferred Pelvic: Deferred Rectal: Deferred Extremities: No calf tenderness, Normal capillary refill, Normal inspection, Normal range of motion, Non-tender, No pedal edema Musculoskeletal : Apperance: Normal Neurologic: Alert, research laboratory manager II-XII nml as Tested, No Motor Deficits, Normal Affect, Normal Mood, No Sensory Deficits Cerebellar Function: Normal Reflexes: Normal Skin: Dry, Warm, Wounds (TWO SMALL INSECT BITE WOUND ON RIGHT POSTERIOR LOWER LEG, NO SWELLING AND DRAINAGE. ) Peripheral Pulses: 2+ carotid (R), 2+ carotid (L), 2+ Radial (R), 2+ Radial (L) Lymphatic: No Adenopathy Was a procedure done? Was a procedure done?: No Differential Diagnosis (INTG) Differential Diagnosis: Cellulitis, Insect Envenomation Differential Diagnosis: Contact Dermatitis X-Ray, Labs, Meds, VS Vital Signs Date Time Temp Pulse Resp B/P (MAP) Pulse Ox O2 Delivery O2 Flow Rate FiO2 07/21/25 10:59 98.4 87 18 171/101 (124) 97 98.4 07/21/25 10:59 87 18 97 Room Air 07/21/25 10:29 98.4 87 18 171/101 97 98.4 X-Ray, Labs, Meds, VS Comment EXTERNAL MEDICAL RECORDS REVIEWED: [NONE] INDEPENDENT HISTORIANS: [NONE] SOCIAL DETERMINANTS OF HEALTH: [NONE] LABS ORDERED: NONE REVIEWED AND INTERPRETED RESULTS: NONE IMAGING ORDERED: NONE TREATMENTS ORDERED: NONE PROCEDURES PERFORMED: NONE CRITICAL CARE TIME: NONE I HAVE DISCUSSED THE PATIENT WITH THE ATTENDING PHYSICIAN, DR. THAKKAR, AND HE AGREES WITH THE PATIENT'S PLAN OF CARE AND DISPOSITION. BASED ON HISTORY OF PRESENT ILLNESS, AND PHYSICAL EXAM, PATIENT WILL BE DISCHARG ED HOME. DISCUSSED PLAN FOR DISCHARGE HOME WITH RX CEPHALEXIN. MEDICATION WARNINGS GIVEN. SHARED DECISION MAKING: DISCUSSED WITH PATIENT THAT THEIR WORKUP WAS NORMAL. PATIENT INSTRUCTED TO FOLLOW UP WITH PRIMARY CARE PROVIDER IN 1-2 DAYS FOR RE-EVALUATION OF SYMPTOMS. PATIENT VERBALIZES UNDERSTANDING TO RETURN TO ED FOR NEW OR WORSENING SYMPTOMS OR IF FOLLOW UP WITH PCP CANNOT BE OBTAINED. PATIENT FEELS COMFORTABLE GOING HOME AT THIS TIME. ALL QUESTIONS ADDRESSED AT TIME OF DISCHARGE. Images Reviewed?: Images reviewed and evaluated by me Time of 1ST Reevaluation: 11:23 Reevaluation 1ST: Improved Patient Education/Counseling: Diagnosis, Treatment, Need For Follow Up Family Education/Counseling: Diagnosis, Treatment, No Family Present Medical Screening: No EMC Exist At This Time SEPSIS Sepsis Screen Date sepsis recognized/suspect: Jul 21, 2025 Time Sepsis recognized/suspect: 103 Recent Procedure: No On Antibiotic Therapy: No Respiratory Rate >20: No Heart Rate >90: No Temp<36 C (96.8 F) or >38.3 C: No SBP <90 or MAP <65 mmHG: No New Acute Mental Status Change: No Is the patient on CPAP, BIPAP,: No Vital Signs Date Time Temp Pulse Resp B/P (MAP) Pulse Ox O2 Delivery O2 Flow Rate FiO2 07/21/25 10:59 98.4 87 18 171/101 (124) 97 98.4 07/21/25 10:59 87 18 97 Room Air 07/21/25 10:29 98.4 87 18 171/101 97 98.4 Departure 1 Departure Time of Disposition: 11:23 Impression: Primary Impression: Insect bite of leg, right Qualified Codes: S80.861A - Insect bite (nonvenomous), right lower leg, initial encounter; W57.XXXA - Bitten or stung by nonvenomous insect and other nonvenomous arthropods, initial encounter Disposition: HOME / SELF CARE / HOMELESS Condition: Stable Additional Instructions: FOLLOW-UP WITH PCP IN 1 TO 2 DAYS. TAKE MEDICATIONS PRESCRIBED. RETURN TO ED FOR ANY NEW OR WORSENING SYMPTOMS. e-Prescriptions Cephalexin Monohydrate (Cephalexin) 500 Mg Cap 1 CAP PO TID, #30 CAP Prov: KIMBERLY GARRETT 07/21/25 Discharged With: Self Critical Care Note Critical Care Time?: No Stability Stability form required: No Heart Score Heart Score: Heart Score Response (Comments) Value History N/A 0 EKG N/A 0 Age N/A 0 Risk Factors N/A 0 Troponin N/A 0 Total 0 I personally scribed for KIMBERLY GARRETT ([email or web address]) on 07/21/25 at 11:12. Electronically submitted by Donna [employer]). KIMBERLY GARRETT Jul 21, 2025 11:12
== END 2025-07-21 11:00 | disposition home or self-care (01) ==
LOC: ER 10:27
DX: S80.861A Insect bite (nonvenomous), right lower leg, initial encounter (principal); Z98.51 Tubal ligation status; Z90.89 Acquired absence of other organs; Z88.5 Allergy status to narcotic agent; W57.XXXA Bitten or stung by nonvenomous insect and other nonvenomous arthropods, initial encounter; Y93.89 Activity, other specified; Y92.89 Other specified places as the place of occurrence of the external cause; Y99.8 Other external cause status

== ENCOUNTER 2025-07-29 14:02 | Emergency (ER) | payer OTHER ==
[~2025-07-29] VITALS: Ht 162.6 cm; Wt 57.0 kg
[~2025-07-29 14:02] MED LIST changes: +CEPH500C PO
--- NOTE | 2025-07-29 14:40 | ED.PDOC ---
Michelle. trauma (HPI) HPI Comments This is a 74 year old female presenting to the ED with chief complaint of fall injury and HTN. Patient reports that she accidentally tripped in her driveway this morning, causing her to injure her right arm. Patient relays that she visited her PCP after and was advised to come to the ED due to the wound to her right arm along with needing evaluation for her high blood pressure. Patient's BP in triage was noted to be 213/118. Patient denies any head injury, LOC, dizziness, chest pain, SOB, or N/V. Chief Complaint: Fall Injury Time Seen by MD: 14:38 Primary Care Provider: Silke Reviewed notes: Nurses Notes, Medications, Allergies Allergies: Coded Allergies: Acetaminophen (Verified Allergy, Unknown, 09/21/22) Codeine (Verified Allergy, Unknown, 07/29/22) Hydrocodone (Verified Allergy, Unknown, 09/21/22) Hydromorphone (Verified Allergy, Unknown, 07/29/22) Oxycodone (Verified Allergy, Unknown, 07/29/22) Uncoded Allergies: OPIOIDS (Allergy, Unknown, 06/11/15) Home Meds Active Scripts Cephalexin Monohydrate (Cephalexin) 500 Mg Cap, 1 CAP PO TID, #30 CAP Prov:KIMBERLY GARRETT 07/21/25 Ibuprofen (Ibuprofen) 800 Mg Tab, 1 TAB PO TID PRN for 30 Days, #90 TAB 1 Refill Prov:CARL CRANE 04/21/23 Levofloxacin Hemihydrate (LEVOFLOXACIN) 500 Mg Tab, 1 TAB PO DAILY, #7 TAB Prov:ROSCOE HARRIS MD 09/23/22 Tramadol Hcl (Tramadol Hcl) 50 Mg Tab, 50 MG PO BID for 10 Days, #20 TAB Prov:ALYSA THAKKAR MD 08/08/22 Diclofenac Potassium (Diclofenac Potassium) 50 Mg Tab, 1 TAB PO TIDP for 10 Days, #30 TAB Prov:ALYSA THAKKAR MD 08/08/22 Cyclobenzaprine Hcl (CYCLOBENZAPRINE HCL) 7.5 Mg Tab, 7.5 MG PO BID for 10 Days, #20 TAB Prov:ALYSA THAKKAR MD 08/08/22 Reported Medications Magnesium Oxide (Mg Supplement (MAGNESIUM) 400 Mg Cap, 400 MG OR DAILY 07/11/12 Lipoic Acid (Thioctic Acid) (Alpha Lipoic Acid) 300 Mg Cap, 300 MG OR DAILY 07/11/12 Multiple Vitamins W/ Minerals (Centrum Silver) Silver Chw, 1 OR DAILY 07/11/12 Misc Natural Products (Osteo Bi-Flex Triple Stre) Triple Tab, 1 OR DAILY 07/11/12 Cholecalciferol (VITAMIN D) 2,000 Unit Tab, 2000 UNIT OR DAILY 07/11/12 [imega 3 fish oil ] No Conflict Check, 1000 MG 07/11/12 Triamterene & Hydrochlorothiaz (Maxzide) 1 Tab Tab, 1 TAB OR DAILY 07/11/12 Lisinopril & Hydrochlorothiazi (Lisinopril/Hydrochlorothi) 1 Tab Tab, 1 TAB OR DAILY 07/11/12 Information Source: Patient Mode of Arrival: Ambulatory Severity: Moderate Timing: Hours Duration: Since onset Prehospital treatment: None Location: (R) Arm Mechanism: Fall Past Medical History PAST MEDICAL HISTORY: Cancer, HTN, Thyroid Surgical History: , Tonsillectomy, Tubal Ligation Surgical History (Other): Brain tumor removal, back surgery FILTER OPERATOR History: Denies all FILTER OPERATOR Hx Family History Family History: Reviewed,noncontributory to illness Social History Smoker: Non-Smoker Alcohol: Denies ETOH Use Drugs: Denies Drug Use Lives In: Home Constitutional: denies: chills, diaphoresis, fatigue, fever, malaise, sweats, weakness, others EENTM: denies: blurred vision, double vision, ear bleeding, ear discharge, ear drainage, ear pain, ear ringing, eye pain, eye redness, hearing loss, mouth pain, mouth swelling, nasal discharge, nose bleeding, nose congestion, nose pain, photophobia, tearing, throat pain, throat swelling, voice changes, others Respiratory: denies: cough, hemoptysis, orthopnea, SOB at rest, shortness of breath, SOB with excertion, stridor, wheezing, others Cardiovascular: denies: chest pain, dizzy spells, diaphoresis, Dyspnea on exertion, edema, irregular heart beat, left arm pain, lightheadedness, palpitations, PND, syncope, others Gastrointestinal: denies: abdomen distended, abdominal pain, blood streaked bowels, constipated, diarrhea, dysphagia, difficulty swallowing, hematemesis, melena, nausea, poor appetite, poor fluid intake, rectal bleeding, rectal pain, vomiting, others Genitourinary: denies: abnormal vagina bleeding, burning, dyspareunia, dysuria, flank pain, frequency, hematuria, incontinence, pain, , vagina discharge, urgency, others Neurological: denies: dizziness, fainting, headache, left sided numbness, left sided weakness, numbness, paresthesia, pre-existing deficit, right sided numbness, right sided weakness, seizure, speech problems, tingling, tremors, weakness, others Musculoskeletal: denies: back pain, gout, joint pain, joint swelling, muscle pain, muscle stiffness, neck pain, others Integumetry: reports: wounds (Rt arm skin tear); denies: bruises, change in color, change in hair/nails, dryness, laceration, lesions, lumps, rash, others Allergic/Immunocompromised: denies: Difficulty Healing, Frequent Infections, Hives, Itching, others Hematologic/Lymphatic: denies: anemia, blood clots, easy bleeding, easy bruising, swollen glands, others Endocrine: denies: excessive hunger, excessive sweating, excessive thirst, excessive urination, flushing, intolerance to cold, intolerance to heat, unexplained weight gain, unexplained weight loss, others Psychiatric: denies: anxiety, bipolar disorder, depression, hopeless, panic disorder, schizophrenia, sleepless, suicidal, others All Other Systems: Reviewed and Negative Physical Exam General Appearance: No Apparent Distress HEENT: Normal ENT Inspection, Pharynx Normal, TMs Normal Neck: Full Range of Motion, Non-Tender, Normal, Normal Inspection Respiratory: Chest Non-Tender, Lungs Clear, No Accessory Muscle Use, No Respiratory Distress, Normal Breath Sounds Cardiovascular: No Edema, No JVD, No Murmur, No Gallop, Normal Peripheral Pulses, Regular Rate/Rhythm Breast Exam: Deferred Gastrointestinal: No Organomegaly, Non Tender, No Pulsatile Mass, Normal Bowel Sounds, Soft Genitalia: Deferred Pelvic: Deferred Rectal: Deferred Extremities: No calf tenderness, Normal capillary refill, Normal inspection, Normal range of motion, Non-tender, No pedal edema Musculoskeletal : Apperance: Normal Neurologic: Alert, weed cutter II-XII nml as Tested, No Motor Deficits, Normal Affect, Normal Mood, No Sensory Deficits Cerebellar Function: Normal Reflexes: Normal Skin: Dry, Normal Color, Warm, Wounds (Abrasion to the right upper arm) Lymphatic: No Adenopathy Was a procedure done? Was a procedure done?: No Differential Diagnosis Multiple Trauma: Abrasions X-Ray, Labs, Meds, VS Vital Signs Date Time Temp Pulse Resp B/P (MAP) Pulse Ox O2 Delivery O2 Flow Rate FiO2 07/29/25 15:57 63 16 161/94 (116) 98 07/29/25 15:15 194/101 07/29/25 15:02 97.2 66 16 194/109 (137) 98 97.2 07/29/25 15:02 98.2 67 20 195/104 (134) 99 98.2 07/29/25 14:19 64 07/29/25 14:03 98.0 72 18 213/118 98 98.0 Lab Test 07/29/25 14:45 Range/Units White Blood Count 6.7 4.4-10.8 10^3/uL Red Blood Count 5.01 4.0-5.20 10^6/uL Hemoglobin 15.3 12.2-16.2 g/dL Hematocrit 43.7 36.0-46.0 % Mean Corpuscular Volume 87.2 80.0-100.0 fL Mean Corpuscular Hemoglobin 30.5 28.0-32.0 pg Mean Corpuscular Hemoglobin Concent 35.0 32.0-36.0 g/dL Red Cell Distribution Width 13.9 11.8-14.3 % Platelet Count 249 140-450 10^3/uL Mean Platelet Volume 8.4 6.9-10.8 fL Neutrophils (%) (Auto) 64.7 37.0-80.0 % Lymphocytes (%) (Auto) 27.6 10.0-50.0 % Monocytes (%) (Auto) 5.3 0.0-12.0 % Eosinophils (%) (Auto) 1.9 0.0-7.0 % Basophils (%) (Auto) 0.5 0.0-2.0 % Neutrophils # (Auto) 4.3 1.6-8.6 10 ^3/uL Lymphocytes # (Auto) 1.8 0.4-5.4 10 ^3/uL Monocytes # (Auto) 0.4 0-1.3 10 ^3/uL Eosinophils # (Auto) 0.1 0-0.8 10 ^3/uL Basophils # (Auto) 0 0-0.2 10 ^3/uL Nucleated Red Blood Cells 0.2 % Sodium Level 134 L 136-145 mmol/L Potassium Level 3.8 3.5-5.1 mmol/L Chloride Level 97 L 98-107 mmol/L Carbon Dioxide Level 27 20-31 mmol/L Anion Gap 10 5-15 Blood Urea Nitrogen 11 9-23 mg/dL Creatinine 0.55 0.550-1.02 mg/dL Glomerular Filtration Rate Calc 97 >90 mL/min BUN/Creatinine Ratio 20.0 10.0-20.0 Serum Glucose 92 74-106 mg/dL Calcium Level 9.9 8.7-10.4 mg/dL Current Medications Medications (Trade) Dose Ordered Sig/Anurag Route Start Time Stop Time Status Last Admin Clonidine HCl (Catapres Tablet) 0.2 mg ONCE ONCE PO 07/29/25 14:45 07/29/25 14:46 DC 07/29/25 15:15 The patient was given clonidine 0.2 mg by mouth The patient's CBC and chemistry panel is within normal limits At this time, the patient is being discharged after the wound was cleaned and Steri-Strips The patient will return to the emergency department's the condition worsens The patient understands and agrees with the management. Time of 1ST Reevaluation: 18:19 Reevaluation 1ST: Improved Patient Education/Counseling: Diagnosis, Treatment, Prognosis, Need For Follow Up Family Education/Counseling: No Family Present Departure 1 Departure Time of Disposition: 18:17 Impression: Primary Impression: Wound of right upper extremity Qualified Codes: S41.101A - Unspecified open wound of right upper arm, initial encounter Disposition: HOME / SELF CARE / HOMELESS Condition: Fair Discharged With: Self Critical Care Note Critical Care Time?: No Stability Stability form required: No Heart Score Heart Score: Heart Score Response (Comments) Value History N/A 0 EKG N/A 0 Age N/A 0 Risk Factors N/A 0 Troponin N/A 0 Total 0 I personally scribed for JASMINE KEARNEY MD ([email or web address]) on 07/29/25 at 14:39. Electronically submitted by Jim Neumann ([email or web address]). JASMINE KEARNEY MD Jul 29, 2025 14:39
[2025-07-29 15:02] VITALS: TEMP 97.2
[2025-07-29 15:10] LABS: Hematocrit 43.7 % (36.0-46.0); Hemoglobin 15.3 g/dL (12.2-16.2); Mean Corpuscular Hemoglobin 30.5 pg (28.0-32.0); Mean Corpuscular Volume 87.2 fL (80.0-100.0); Nucleated Red Blood Cells % 0.2 %
[2025-07-29 15:21] LABS: Potassium 3.8 mmol/L (3.5-5.1)
[2025-07-29 15:22] LABS: Anion Gap 10 (5-15); Calcium 9.9 mg/dL (8.7-10.4); Carbon Dioxide 27 mmol/L (20-31)
[2025-07-29 15:24] LABS: Chloride 97 mmol/L (98-107); Sodium 134 mmol/L (136-145)
[2025-07-29 15:27] LABS: BUN/Creatinine Ratio 20.0 (10.0-20.0); Blood Urea Nitrogen 11 mg/dL (9-23); Glucose 92 mg/dL (74-106)
[2025-07-29 15:57] VITALS: BP 161/94; PULSE 63; RESP 16; O2SAT 98
--- NOTE | 2025-07-29 16:15 | ECG ---
[facility] Test Date: 2025-07-29 Test Time: 14:19:27 Pat Name: YOU CERVANTES Department: ED Room: Gender: F Opticianry Teacher: SHAY : 1950 Requested By: JASMINE KEARNEY Order Number: [id number] Reading MD: Measurements Intervals [place] Rate: 64 P: 58 AL: 189 QRS: -30 QRSD: 90 T: 60 QT: 377 QTc: 389 Interpretive Statements Sinus rhythm Atrial premature complex Consider left atrial enlargement Left axis deviation Low voltage, precordial leads Please click the below link to view image of tracing.
[2025-07-30] MEDS ORDERED: ACET-1080 PO (08:03)
== END 2025-07-29 16:29 | disposition left against medical advice (07) ==
LOC: ER 14:02
DX: S41.101A Unspecified open wound of right upper arm, initial encounter (principal); I10 Essential (primary) hypertension; E03.9 Hypothyroidism, unspecified; Z85.850 Personal history of malignant neoplasm of thyroid; Z90.89 Acquired absence of other organs; Z88.5 Allergy status to narcotic agent; Z98.51 Tubal ligation status; W01.0XXA Fall on same level from slipping, tripping and stumbling without subsequent striking against object, initial encounter; Y93.89 Activity, other specified; Y92.89 Other specified places as the place of occurrence of the external cause; Y99.8 Other external cause status
CPT/HCPCS: 36415; 80048; 85025; 93005

== ENCOUNTER 2025-07-30 06:54 | Emergency (ER) | payer OTHER ==
[~2025-07-30] VITALS: Ht 162.6 cm; Wt 51.6 kg
--- NOTE | 2025-07-30 07:23 | ED.PDOC ---
Musculoskeletal HPI Comments A 74 YEAR OLD FEMALE PRESENTS TO THE ED WITH COMPLAINT OF RIGHT ELBOW PAIN AND RIGHT KNEE PAIN STATUS POST FALL. PATIENT STATES SHE ACCIDENTALLY TRIPPED AND FELL YESTERDAY AND INJURED HER RIGHT ELBOW AND RIGHT KNEE. PATIENT REPORTS SHE IS NOW EXPERIENCING RIGHT ELBOW PAIN AND RIGHT KNEE PAIN AND SUSTAINED A SKIN TEAR TO THESE AREAS. PATIENT DENIES HEAD INJURY, NECK INJURY, LOC, FEVER, CHILLS, SHORTNESS OF BREATH, CHEST PAIN, ABDOMINAL PAIN, NAUSEA, VOMITING, HEADACHE, OR OTHER COMPLAINTS. NO OTHER SYMPTOMS OR MODIFYING FACTORS AT THIS TIME. PATIENT IS ALERT, ORIENTED X 4, AND HAS STEADY GAIT. Chief Complaint: Upper Extremity Time Seen by MD: 07:05 Primary Care Provider: Silke Reviewed Notes: Nurses Notes, Medications, Allergies Allergies: Coded Allergies: Acetaminophen (Verified Allergy, Unknown, 09/21/22) Codeine (Verified Allergy, Unknown, 07/29/22) Hydrocodone (Verified Allergy, Unknown, 09/21/22) Hydromorphone (Verified Allergy, Unknown, 07/29/22) Oxycodone (Verified Allergy, Unknown, 07/29/22) Uncoded Allergies: OPIOIDS (Allergy, Unknown, 06/11/15) Home Meds Active Scripts Acetaminophen (Tylenol 8 Hour Arthritis) 650 Mg Tab, 650 MG PO TID, #30 TAB Prov:KIMBERLY GARRETT 07/30/25 Cephalexin Monohydrate (Cephalexin) 500 Mg Cap, 1 CAP PO TID, #30 CAP Prov:KIMBERLY GARRETT 07/30/25 Cephalexin Monohydrate (Cephalexin) 500 Mg Cap, 1 CAP PO TID, #30 CAP Prov:KIMBERLY GARRETT 07/21/25 Ibuprofen (Ibuprofen) 800 Mg Tab, 1 TAB PO TID PRN for 30 Days, #90 TAB 1 Refill Prov:CARL CRANE 04/21/23 Levofloxacin Hemihydrate (LEVOFLOXACIN) 500 Mg Tab, 1 TAB PO DAILY, #7 TAB Prov:ROSCOE HARRIS MD 09/23/22 Tramadol Hcl (Tramadol Hcl) 50 Mg Tab, 50 MG PO BID for 10 Days, #20 TAB Prov:ALYSA THAKKAR MD 08/08/22 Diclofenac Potassium (Diclofenac Potassium) 50 Mg Tab, 1 TAB PO TIDP for 10 Days, #30 TAB Prov:ALYSA THAKKAR MD 08/08/22 Cyclobenzaprine Hcl (CYCLOBENZAPRINE HCL) 7.5 Mg Tab, 7.5 MG PO BID for 10 Days, #20 TAB Prov:ALYSA THAKKAR MD 08/08/22 Reported Medications Magnesium Oxide (Mg Supplement (MAGNESIUM) 400 Mg Cap, 400 MG OR DAILY 07/11/12 Lipoic Acid (Thioctic Acid) (Alpha Lipoic Acid) 300 Mg Cap, 300 MG OR DAILY 07/11/12 Multiple Vitamins W/ Minerals (Centrum Silver) Silver Chw, 1 OR DAILY 07/11/12 Misc Natural Products (Osteo Bi-Flex Triple Stre) Triple Tab, 1 OR DAILY 07/11/12 Cholecalciferol (VITAMIN D) 2,000 Unit Tab, 2000 UNIT OR DAILY 07/11/12 [imega 3 fish oil ] No Conflict Check, 1000 MG 07/11/12 Triamterene & Hydrochlorothiaz (Maxzide) 1 Tab Tab, 1 TAB OR DAILY 07/11/12 Lisinopril & Hydrochlorothiazi (Lisinopril/Hydrochlorothi) 1 Tab Tab, 1 TAB OR DAILY 07/11/12 Information Source: Patient Mode of Arrival: Ambulatory Location: Right Extremity Location: Elbow, Knee Timing: Days Prehospital treatment: None Severity: Moderate Able to Move Extremity: Yes Bear Weight: Fully Pain: Moderate Mechanism: Blunt Trauma Circumstances: Fall Onset of Symptoms: After Trauma Symptoms: Pain DVT Risk Factors: NONE Last Tetanus: UTD, Unknown Associated signs and symptoms: Knee pain, Elbow pain Past Medical History PAST MEDICAL HISTORY: Cancer, HTN, Thyroid Surgical History: , Tonsillectomy, Tubal Ligation 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 Family History Family History: Reviewed,noncontributory to illness Social History Smoker: Non-Smoker Alcohol: Denies ETOH Use Drugs: Denies Drug Use Lives In: Home Constitutional: denies: chills, diaphoresis, fatigue, fever, malaise, sweats, weakness, others EENTM: denies: blurred vision, double vision, ear bleeding, ear discharge, ear drainage, ear pain, ear ringing, eye pain, eye redness, hearing loss, mouth pain, mouth swelling, nasal discharge, nose bleeding, nose congestion, nose pain, photophobia, tearing, throat pain, throat swelling, voice changes, others Respiratory: denies: cough, hemoptysis, orthopnea, SOB at rest, shortness of breath, SOB with excertion, stridor, wheezing, others Cardiovascular: denies: chest pain, dizzy spells, diaphoresis, Dyspnea on exertion, edema, irregular heart beat, left arm pain, lightheadedness, palpitations, PND, syncope, others Gastrointestinal: denies: abdomen distended, abdominal pain, blood streaked bowels, constipated, diarrhea, dysphagia, difficulty swallowing, hematemesis, melena, nausea, poor appetite, poor fluid intake, rectal bleeding, rectal pain, vomiting, others Genitourinary: denies: abnormal vagina bleeding, burning, dyspareunia, dysuria, flank pain, frequency, hematuria, incontinence, pain, , vagina discharge, urgency, others Neurological: denies: dizziness, fainting, headache, left sided numbness, left sided weakness, numbness, paresthesia, pre-existing deficit, right sided numbness, right sided weakness, seizure, speech problems, tingling, tremors, weakness, others Musculoskeletal: reports: joint pain, joint swelling, muscle pain, others (RIGHT KNEE PAIN, RIGHT ELBOW PAIN); denies: back pain, gout, muscle stiffness, neck pain Integumetry: reports: wounds (SKIN TEAR ON RIGHT POSTERIOE ELBOW. ); denies: bruises, change in color, change in hair/nails, dryness, laceration, lesions, lumps, rash, others Allergic/Immunocompromised: denies: Difficulty Healing, Frequent Infections, Hives, Itching, others Hematologic/Lymphatic: denies: anemia, blood clots, easy bleeding, easy brui sing, swollen glands, others Endocrine: denies: excessive hunger, excessive sweating, excessive thirst, ex cessive urination, flushing, intolerance to cold, intolerance to heat, unexplained weight gain, unexplained weight loss, others Psychiatric: denies: anxiety, bipolar disorder, depression, hopeless, panic disorder, schizophrenia, sleepless, suicidal, others All Other Systems: Reviewed and Negative Physical Exam General Appearance: No Apparent Distress, Normal HEENT: Normal ENT Inspection, PERRL/EOMI, Pharynx Normal, TMs Normal Neck: Full Range of Motion, Non-Tender, Normal, Normal Inspection Respiratory: Chest Non-Tender, Lungs Clear, No Accessory Muscle Use, No Respiratory Distress, Normal Breath Sounds Cardiovascular: No Edema, No JVD, No Murmur, No Gallop, Normal Peripheral Pulses, Regular Rate/Rhythm Breast Exam: Deferred Gastrointestinal: No Organomegaly, Non Tender, No Pulsatile Mass, Normal Bowel Sounds, Soft Genitalia: Deferred Pelvic: Deferred Rectal: Deferred Extremities: No calf tenderness, Normal capillary refill, Normal range of motion, No pedal edema, Swelling (TENDERNESS AND MILD SWELLING ON RIGHT KNEE, NO BONY TENDERNESS AND DEFORMITY, NORMAL GAIT. ), Tender (RIGHT KNEE AND RIGHT ELBOW, NO BONY TENDERNESS AND DEFORMITY, SKIN TEAR ON RIGHT POSTERIOR ELBOW. ) Musculoskeletal : Apperance: Normal Neurologic: Alert, rn cardiac rehab II-XII nml as Tested, No Motor Deficits, Normal Affect, Normal Mood, No Sensory Deficits Cerebellar Function: Normal Reflexes: Normal Skin: Dry, Normal Color, Warm, Wounds (A BIG SKIN TEAR ON RIGHT POSTERIOR ELBOW, NO BLEEDING AND SWELLING, NORMAL ROM. ) Peripheral Pulses: 2+ carotid (R), 2+ carotid (L), 2+ Radial (R), 2+ Radial (L) Lymphatic: No Adenopathy Was a procedure done? Was a procedure done?: No Differential Diagnosis EXT Differential Diagnosis: Fracture, Sprain, Dislocation, Laceration, Contusion, Strain, Arthritis, Bursitis Other Differential Diagnosis ABRASION, PUNCTURE WOUND X-Ray, Labs, Meds, VS Vital Signs Date Time Temp Pulse Resp B/P (MAP) Pulse Ox O2 Delivery O2 Flow Rate FiO2 07/30/25 06:56 97.5 83 20 162/90 98 97.5 Current Medications Medications (Trade) Dose Ordered Sig/Anurag Route Start Time Stop Time Status Last Admin Acetaminophen (Tylenol Tablet Or Capsule) 1,000 mg ONCE ONCE PO 07/30/25 07:30 07/30/25 07:31 DC 07/30/25 07:51 X-Ray, Labs, Meds, VS Comment EXTERNAL MEDICAL RECORDS REVIEWED: [NONE] INDEPENDENT HISTORIANS: [NONE] SOCIAL DETERMINANTS OF HEALTH: [NONE] LABS ORDERED: NONE REVIEWED AND INTERPRETED RESULTS: NONE IMAGING ORDERED: XR ELBOW RT:[INTERPRETED BY ME. NO ACUTE FINDINGS. NO FRACTURES OR DISLOCATION. PENDING RADIOLOGIST REPORT.] XR KNEE RT: [INTERPRETED BY ME. NO ACUTE FRACTURE OR DISLOCATION SEEN. DJD VISUALIZED. PENDING RADIOLOGIST REVIEW.] TREATMENTS ORDERED: SKIN FROM PATIENT'S SKIN TEAR ON HER RIGHT ELBOW WAS REMOVED AND WOUND WAS THEN CLEANED WITH NORMAL SALINE. STERILE GAUZE WAS THEN APPLIED. PATIENT TOLERATED WELL. PROCEDURES PERFORMED: NONE CRITICAL CARE TIME: NONE I HAVE DISCUSSED THE PATIENT WITH THE ATTENDING PHYSICIAN DR. LAMBERT AND HE AGREES WITH THE PATIENT'S PLAN OF CARE AND DISPOSITION. BASED ON HISTORY OF PRESENT ILLNESS, AND PHYSICAL EXAM, PATIENT WILL BE DISCHARGED HOME. DISCUSSED PLAN FOR DISCHARGE HOME WITH RX [KEFLEX]. MEDICATION WARNINGS GIVEN. SHARED DECISION MAKING: DISCUSSED WITH PATIENT THAT THEIR WORKUP WAS NORMAL. PATIENT INSTRUCTED TO FOLLOW UP WITH PRIMARY CARE PROVIDER IN 1-2 DAYS FOR RE- EVALUATION OF SYMPTOMS. PATIENT VERBALIZES UNDERSTANDING TO RETURN TO ED FOR NEW OR WORSENING SYMPTOMS OR IF FOLLOW UP WITH PCP CANNOT BE OBTAINED. PATIENT FEELS COMFORTABLE GOING HOME AT THIS TIME. ALL QUESTIONS ADDRESSED AT TIME OF DISCHARGE. Images Reviewed?: Images reviewed and evaluated by me Time of 1ST Reevaluation: 08:08 Reevaluation 1ST: Improved Patient Education/Counseling: Diagnosis, Treatment, Need For Follow Up Family Education/Counseling: Diagnosis, Treatment, Need For Follow Up Medical Screening: No EMC Exist At This Time Departure 1 Departure Time of Disposition: 08:10 Impression: Primary Impression: Skin tear of right elbow without complication Qualified Codes: S51.011A - Laceration without foreign body of right elbow, initial encounter Additional Impressions: Sprain of right knee Qualified Codes: S83.91XA - Sprain of unspecified site of right knee, initial encounter Degenerative joint disease of right knee Qualified Codes: M17.11 - Unilateral primary osteoarthritis, right knee Status post fall Disposition: 01 HOME / SELF CARE / HOMELESS Condition: Stable Additional Instructions: FOLLOW-UP WITH PCP IN 1 TO 2 DAYS. TAKE MEDICATIONS PRESCRIBED. RETURN TO E D FOR ANY NEW OR WORSENING SYMPTOMS. e-Prescriptions Acetaminophen (Tylenol 8 Hour Arthritis) 650 Mg Tab 650 MG PO TID, #30 TAB Prov: KIMBERLY GARRETT 07/30/25 Cephalexin Monohydrate (Cephalexin) 500 Mg Cap 1 CAP PO TID, #30 CAP Prov: KIMBERLY GARRETT 07/30/25 Discharged With: Self, Relative Critical Care Note Critical Care Time?: No Stability Stability form required: No I personally scribed for KIMBERLY GARRETT ([email or web address]) on 9/12/25 at 07:23. Electronically submitted by Brian Olivo ([email or web address]). I personally scribed for KIMBERLY GARRETT ([email or web address]) on 07/30/25 at 07:46. Electronically submitted by Brian Olivo ([email or web address]). I personally scribed for KIMBERLY GARRETT ([email or web address]) on 07/30/25 at 08:03. Electronically submitted by Brian Olivo ([email or web address]). KIMBERLY GARRETT Jul 30, 2025 07:23
[2025-07-30] MEDS: ACETAMINOPHEN 500 MG TAB or CAP PO ONE (07:51)
[2025-07-30] MEDS ORDERED: ACET-1080 PO (08:03)
[2025-07-30 08:04] VITALS: BP 162/90; PULSE 83; RESP 20; TEMP 97.5; O2SAT 98
--- NOTE | 2025-07-30 08:10 | DVH ---
XY R KNEE 3V XRAY, INDICATION: FALL TECHNICAL DATA: Frontal , oblique and lateral views were obtained of the right knee. COMPARISON: None FINDINGS: Right knee arthroplasty appears intact. Medial, lateral and patellofemoral compartment joint spaces are maintained. Alignment is anatomic. Soft tissues are within normal limits. No joint effusion is d emonstrated. IMPRESSION: No acute fracture or dislocation of the right knee. Right knee arthroplasty appears intact.
--- NOTE | 2025-07-30 08:17 | DVH ---
CLINICAL INDICATION: FALL, trauma, pain TECHNIQUE: XY R ELBOW 3 VIEW XRAY Comparison: None FINDINGS/IMPRESSION: : There is no evidence of acute fracture or dislocation. Soft tissues are unremarkable.
== END 2025-07-30 08:09 | disposition home or self-care (01) ==
LOC: ER 06:54
DX: S51.011A Laceration without foreign body of right elbow, initial encounter (principal); S83.91XA Sprain of unspecified site of right knee, initial encounter; M17.11 Unilateral primary osteoarthritis, right knee; I10 Essential (primary) hypertension; Z98.51 Tubal ligation status; Z96.651 Presence of right artificial knee joint; Z88.5 Allergy status to narcotic agent; Z85.850 Personal history of malignant neoplasm of thyroid; Z90.89 Acquired absence of other organs; Z79.899 Other long term (current) drug therapy; W01.10XA Fall on same level from slipping, tripping and stumbling with subsequent striking against unspecified object, initial encounter; Y93.89 Activity, other specified; Y92.89 Other specified places as the place of occurrence of the external cause; Y99.8 Other external cause status
CPT/HCPCS: 73080; 73562

== ENCOUNTER 2025-10-12 12:24 | Emergency (ER) | payer OTHER ==
[~2025-10-12] VITALS: Ht 165.1 cm; Wt 57.8 kg
[~2025-10-12 12:24] MED LIST changes: +ACET-1080 PO
[2025-10-12 12:25] VITALS: TEMP 97.5
[2025-10-12 13:27] LABS: Hematocrit 43.2 % (36.0-46.0); Hemoglobin 15.1 g/dL (12.2-16.2); Mean Corpuscular Hemoglobin 30.6 pg (28.0-32.0); Mean Corpuscular Volume 87.6 fL (80.0-100.0); Nucleated Red Blood Cells % 0.2 %
--- NOTE | 2025-10-12 13:28 | ED.PDOC ---
History of Present Illness HPI Comments 74 y/o F, with PMHx of ocular melanoma presents to the ED for CC of eye-pain. Patient states, she has been experiencing left eye pain onset, xmonths which worsened in the last x1day. Patient reports, ocular melanoma to have been [id number] ago and to be in complete remission since. Patient denies blurred vision , headache, dizziness, or photophobia. Chief Complaint: Eye Problem Time Seen by MD: 13:20 Primary Care Provider: Silke Reviewed Notes: Nurses Notes, Medications, Allergies Allergies: Coded Allergies: Acetaminophen (Verified Allergy, Unknown, 09/21/22) Codeine (Verified Allergy, Unknown, 07/29/22) Hydrocodone (Verified Allergy, Unknown, 09/21/22) Hydromorphone (Verified Allergy, Unknown, 07/29/22) Oxycodone (Verified Allergy, Unknown, 07/29/22) Uncoded Allergies: OPIOIDS (Allergy, Unknown, 06/11/15) Home Meds Active Scripts Acetaminophen (Tylenol 8 Hour Arthritis) 650 Mg Tab, 650 MG PO TID, #30 TAB Prov:KIMBERLY GARRETT 07/30/25 Cephalexin Monohydrate (Cephalexin) 500 Mg Cap, 1 CAP PO TID, #30 CAP Prov:KIMBERLY GARRETT 07/30/25 Cephalexin Monohydrate (Cephalexin) 500 Mg Cap, 1 CAP PO TID, #30 CAP Prov:KIMBERLY GARRETT 07/21/25 Ibuprofen (Ibuprofen) 800 Mg Tab, 1 TAB PO TID PRN for 30 Days, #90 TAB 1 Refill Prov:CARL CRANE 04/21/23 Levofloxacin Hemihydrate (LEVOFLOXACIN) 500 Mg Tab, 1 TAB PO DAILY, #7 TAB Prov:ROSCOE HARRIS MD 09/23/22 Tramadol Hcl (Tramadol Hcl) 50 Mg Tab, 50 MG PO BID for 10 Days, #20 TAB Prov:ALYSA THAKKAR MD 08/08/22 Diclofenac Potassium (Diclofenac Potassium) 50 Mg Tab, 1 TAB PO TIDP for 10 Days, #30 TAB Prov:ALYSA THAKKAR MD 08/08/22 Cyclobenzaprine Hcl (CYCLOBENZAPRINE HCL) 7.5 Mg Tab, 7.5 MG PO BID for 10 Days, #20 TAB Prov:ALYSA THAKKAR MD 08/08/22 Reported Medications Magnesium Oxide (Mg Supplement (MAGNESIUM) 400 Mg Cap, 400 MG OR DAILY 07/11/12 Lipoic Acid (Thioctic Acid) (Alpha Lipoic Acid) 300 Mg Cap, 300 MG OR DAILY 07/11/12 Multiple Vitamins W/ Minerals (Centrum Silver) Silver Chw, 1 OR DAILY 07/11/12 Misc Natural Products (Osteo Bi-Flex Triple Stre) Triple Tab, 1 OR DAILY 07/11/12 Cholecalciferol (VITAMIN D) 2,000 Unit Tab, 2000 UNIT OR DAILY 07/11/12 [imega 3 fish oil ] No Conflict Check, 1000 MG 07/11/12 Triamterene & Hydrochlorothiaz (Maxzide) 1 Tab Tab, 1 TAB OR DAILY 07/11/12 Lisinopril & Hydrochlorothiazi (Lisinopril/Hydrochlorothi) 1 Tab Tab, 1 TAB OR DAILY 07/11/12 Information Source: Patient Mode of Arrival: Ambulatory Severity: Moderate Timing: Months Duration: Since onset Prehospital treatment: None Past Medical History PAST MEDICAL HISTORY: Cancer, HTN, Thyroid Surgical History: , Tonsillectomy, Tubal Ligation 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 Family History Family History: Reviewed,noncontributory to illness Social History Smoker: Non-Smoker Alcohol: Denies ETOH Use Drugs: Denies Drug Use Lives In: Home Constitutional: denies: chills, diaphoresis, fatigue, fever, malaise, sweats, weakness, others EENTM: reports: eye pain; denies: blurred vision, double vision, ear bleeding, ear discharge, ear drainage, ear pain, ear ringing, eye redness, hearing loss, mouth pain, mouth swelling, nasal discharge, nose bleeding, nose congestion, nose pain, photophobia, tearing, throat pain, throat swelling, voice changes, others Respiratory: denies: cough, hemoptysis, orthopnea, SOB at rest, shortness of breath, SOB with excertion, stridor, wheezing, others Cardiovascular: denies: chest pain, dizzy spells, diaphoresis, Dyspnea on exertion, edema, irregular heart beat, left arm pain, lightheadedness, palpitations, PND, syncope, others Gastrointestinal: denies: abdomen distended, abdominal pain, blood streaked bowels, constipated, diarrhea, dysphagia, difficulty swallowing, hematemesis, melena, nausea, poor appetite, poor fluid intake, rectal bleeding, rectal pain, vomiting, others Genitourinary: denies: abnormal vagina bleeding, burning, dyspareunia, dysuria, flank pain, frequency, hematuria, incontinence, pain, , vagina discharge, urgency, others Neurological: denies: dizziness, fainting, headache, left sided numbness, left sided weakness, numbness, paresthesia, pre-existing deficit, right sided numb ness, right sided weakness, seizure, speech problems, tingling, tremors, weakness, others Musculoskeletal: denies: back pain, gout, joint pain, joint swelling, muscle pain, muscle stiffness, neck pain, others Integumetry: denies: bruises, change in color, change in hair/nails, dryness, laceration, lesions, lumps, rash, wounds, others Allergic/Immunocompromised: denies: Difficulty Healing, Frequent Infections, Hives, Itching, others Hematologic/Lymphatic: denies: anemia, blood clots, easy bleeding, easy bruising, swollen glands, others Endocrine: denies: excessive hunger, excessive sweating, excessive thirst, excessive urination, flushing, intolerance to cold, intolerance to heat, unexplained weight gain, unexplained weight loss, others Psychiatric: denies: anxiety, bipolar disorder, depression, hopeless, panic disorder, schizophrenia, sleepless, suicidal, others All Other Systems: Reviewed and Negative Physical Exam General Appearance: Moderate Distress HEENT: Normal ENT Inspection, Pharynx Normal, TMs Normal Neck: Full Range of Motion, Non-Tender, Normal, Normal Inspection Respiratory: Chest Non-Tender, Lungs Clear, No Accessory Muscle Use, No Respiratory Distress, Normal Breath Sounds Cardiovascular: No Edema, No JVD, No Murmur, No Gallop, Normal Peripheral Pulses, Regular Rate/Rhythm Breast Exam: Deferred Gastrointestinal: No Organomegaly, Non Tender, No Pulsatile Mass, Normal Bowel Sounds, Soft Genitalia: Deferred Pelvic: Deferred Rectal: Deferred Extremities: No calf tenderness, Normal capillary refill, Normal inspection, Normal range of motion, Non-tender, No pedal edema Musculoskeletal : Apperance: Normal Neurologic: Alert, motion picture critic II-XII nml as Tested, No Motor Deficits, Normal Affect, Normal Mood, No Sensory Deficits Cerebellar Function: Normal Reflexes: Normal Skin: Dry, Normal Color, Warm Peripheral Pulses: 3+ Radial (R), 3+ Radial (L) Lymphatic: No Adenopathy Was a procedure done? Was a procedure done?: No Differential Dx Considerations may include: CONJUNCTIVITIS, CORNEAL ABRASION X-Ray, Labs, Meds, VS Vital Signs Date Time Temp Pulse Resp B/P (MAP) Pulse Ox O2 Delivery O2 Flow Rate FiO2 10/12/25 14:00 80 16 112/80 (91) 97 10/12/25 12:25 97.5 82 18 169/88 97 97.5 Lab Test 10/12/25 12:52 Range/Units White Blood Count 6.7 4.4-10.8 10^3/uL Red Blood Count 4.93 4.0-5.20 10^6/uL Hemoglobin 15.1 12.2-16.2 g/dL Hematocrit 43.2 36.0-46.0 % Mean Corpuscular Volume 87.6 80.0-100.0 fL Mean Corpuscular Hemoglobin 30.6 28.0-32.0 pg Mean Corpuscular Hemoglobin Concent 34.9 32.0-36.0 g/dL Red Cell Distribution Width 13.4 11.8-14.3 % Platelet Count 267 140-450 10^3/uL Mean Platelet Volume 8.4 6.9-10.8 fL Neutrophils (%) (Auto) 63.1 37.0-80.0 % Lymphocytes (%) (Auto) 27.1 10.0-50.0 % Monocytes (%) (Auto) 6.3 0.0-12.0 % Eosinophils (%) (Auto) 2.5 0.0-7.0 % Basophils (%) (Auto) 1.0 0.0-2.0 % Neutrophils # (Auto) 4.2 1.6-8.6 10 ^3/uL Lymphocytes # (Auto) 1.8 0.4-5.4 10 ^3/uL Monocytes # (Auto) 0.4 0-1.3 10 ^3/uL Eosinophils # (Auto) 0.2 0-0.8 10 ^3/uL Basophils # (Auto) 0.1 0-0.2 10 ^3/uL Nucleated Red Blood Cells 0.2 % Sodium Level 137 136-145 mmol/L Potassium Level 4.2 3.5-5.1 mmol/L Chloride Level 100 98-107 mmol/L Carbon Dioxide Level 27 20-31 mmol/L Anion Gap 10 5-15 Blood Urea Nitrogen 14 9-23 mg/dL Creatinine 0.49 L 0.550-1.02 mg/dL Glomerular Filtration Rate Calc 99 >90 mL/min BUN/Creatinine Ratio 28.6 H 10.0-20.0 Serum Glucose 118 H 74-106 mg/dL Calcium Level 10.0 8.7-10.4 mg/dL Troponin I High Sensitivity 4 </=34 ng/L Patient alert. Came in because of something in her eye. Vitals stable. Answering questions. On examination no abnormality of left eye. Chronic history. WBC within normal limits. Hemoglobin within normal limit. Explained to the patient. Continue monitoring. Time of 1ST Reevaluation: 13:50 Reevaluation 1ST: Unchanged Patient Education/Counseling: Diagnosis, Treatment Family Education/Counseling: No Family Present SEPSIS Sepsis Screen Date sepsis recognized/suspect: Oct 12, 2025 Time Sepsis recognized/suspect: 1225 Recent Procedure: No On Antibiotic Therapy: No Respiratory Rate >20: No Heart Rate >90: No Temp<36 C (96.8 F) or >38.3 C: No SBP <90 or MAP <65 mmHG: No New Acute Mental Status Change: No Is the patient on CPAP, BIPAP,: No Physician Orders Urinalysis (10/12/25 12:42) Vital Signs Date Time Temp Pulse Resp B/P (MAP) Pulse Ox O2 Delivery O2 Flow Rate FiO2 10/12/25 14:00 80 16 112/80 (91) 97 10/12/25 12:25 97.5 82 18 169/88 97 97.5 Laboratory Tests Test 10/12/25 12:52 White Blood Count 6.7 10^3/uL (4.4-10.8) Departure 1 Departure Time of Disposition: 16:40 Impression: Primary Impression: Hypertensive urgency Disposition: 30 STILL A PATIENT Condition: Good Discharged With: Self Critical Care Note Critical Care Time?: No Stability Stability form required: No Heart Score Heart Score: Heart Score Response (Comments) Value History N/A 0 EKG N/A 0 Age N/A 0 Risk Factors N/A 0 Troponin N/A 0 Total 0 I personally scribed for FELICITY LAMBERT MD ([email or web address]) on 10/12/25 at 13:28. Electronically submitted by Brooke Gregory ([email or web address]). FELICITY LAMBERT MD Oct 12, 2025 13:28
[2025-10-12 13:33] LABS: Chloride 100 mmol/L (98-107); Potassium 4.2 mmol/L (3.5-5.1); Sodium 137 mmol/L (136-145)
[2025-10-12 13:34] LABS: Anion Gap 10 (5-15); Calcium 10.0 mg/dL (8.7-10.4); Carbon Dioxide 27 mmol/L (20-31)
[2025-10-12 13:39] LABS: BUN/Creatinine Ratio 28.6 (10.0-20.0); Blood Urea Nitrogen 14 mg/dL (9-23)
[2025-10-12 13:40] LABS: Glucose 118 mg/dL (74-106)
[2025-10-12 14:00] VITALS: BP 112/80; PULSE 80; RESP 16; O2SAT 97
== END 2025-10-12 14:41 | disposition home or self-care (01) ==
LOC: ER 12:24
DX: I16.0 Hypertensive urgency (principal); H57.12 Ocular pain, left eye; I10 Essential (primary) hypertension; Z88.5 Allergy status to narcotic agent; Z90.89 Acquired absence of other organs; Z98.51 Tubal ligation status
CPT/HCPCS: 36415; 80048; 84484; 85025